=== PATIENT | male | born 1960 | race Caucasian/White ===

== ENCOUNTER → 2016-12-29 | Outpatient (CLI) | payer OTHER ==
[2016-12-29 12:25] LABS: CHLORIDE,CL 105 mmol/L (98-110); SODIUM,NA 136 mmol/L (136-146)
--- NOTE | 2016-12-29 12:56 | CR ---
EXAMINATION: Two-view chest (PA and Lateral views). HISTORY: Preprocedural examination. FINDINGS: The trachea is midline. The cardiomediastinal silhouette is within normal limits. No pulmonary infil trates, effusions or pneumothorax. Osseous structures appear unremarkable. IMPRESSION: No acute cardiopulmonary process.
== END ==
LOC: MW.CHFP 11:25
PROVIDERS: ATTEND Nurse Practitioner Family
DX: Z01.818 Encounter for other preprocedural examination (principal); R73.09 Other abnormal glucose
CPT/HCPCS: 36415; 71020; 71020-26; 80053; 85027; 93005

== ENCOUNTER → 2016-12-30 | Outpatient (CLI) | payer OTHER | LOC: MW.CHFP 07:35 | PROVIDERS: ATTEND Nurse Practitioner Family | DX: R73.09 Other abnormal glucose (principal) | CPT/HCPCS: 36415; 83036 ==

== ENCOUNTER 2019-08-05 11:11 | Day surgery (SDC) | payer OTHER ==
[~2019-08-05 11:11] MED LIST: Ropivacaine 0.5% 5 MG/ML 30 ML SDV ONE
[2019-08-05] MEDS ORDERED: Lactated Ringers 1,000 ML IV SCH (11:45)
[2019-08-05] MEDS ORDERED: Sugammadex Sodium 200 MG/2 ML VIAL ONE (11:56)
[2019-08-05] MEDS ORDERED: ceFAZolin 1 GM Vial ONE (12:13)
[2019-08-05] MEDS ORDERED: Glycopyrrolate 0.2 MG/ML SDV ONE (12:15)
[2019-08-05] MEDS ORDERED: Rocuronium 100 MG/10 ML Syringe ONE (12:15)
[2019-08-05] MEDS ORDERED: Ketorolac 30 MG/ML SDV ONE (12:15)
[2019-08-05] MEDS ORDERED: Ondansetron 4 MG/2 ML SDV ONE (12:15)
[2019-08-05] MEDS ORDERED: Midazolam 1 MG/ML 2 ML SDV ONE ×2 (12:16)
[2019-08-05] MEDS ORDERED: fentaNYL 100 MCG/2 ML SDV ONE (12:16)
[2019-08-05] MEDS ORDERED: Propofol 200 MG/20 ML SDV ONE (12:18)
[2019-08-05] MEDS ORDERED: Dexamethasone 4 MG/ML 5 ML MDV ONE ×2 (12:24→12:28)
--- NOTE | 2019-08-05 13:15 | PCM.PREANE ---
Preanesthetic Assessment - Anesthesia/Transfusion/Family Hx Anesthesia History: Prior Anesthesia Without Reaction Other Type of Anesthesia Reaction Comment: pt adopted unsure of family history Family History of Anesthesia Reaction: No Transfusion History: No Prior Transfusion(s) Intubation History: Unknown - Review of Systems General: No Symptoms Pulmonary: No Symptoms Cardiovascular: No Symptoms Gastrointestinal: No Symptoms Neurological: No Symptoms Other: Reports: None - Physical Assessment NPO Status Date: 08/04/19 NPO Status Time: 20:00 Vital Signs: Last Vital Signs Temp 36.4 C 08/05/19 11:25 Pulse 99 08/05/19 11:25 Resp 16 08/05/19 11:25 BP 145/89 H 08/05/19 11:25 Pulse Ox 98 08/05/19 11:25 Height: 6 ft Weight: 112.945 kg ASA Class: 3 Mental Status: Alert & Oriented x3 Airway Class: Mallampati = 2 Dentition: Reports: Normal Dentition ROM/Head Extension: Full Lungs: Clear to Auscultation, Normal Respiratory Effort Cardiovascular: Regular Rate, Regular Rhythm - Allergies Allergies/Adverse Reactions: Allergies Allergy/AdvReac Type Severity Reaction Status Date / Time diclofenac [Diclofenac] Allergy Swelling Verified 08/02/19 12:56 - Blood Blood Available: No - Anesthesia Plan Pre-Op Medication Ordered: None - Acknowledgements Anesthesia Type Planned: General Anesthesia (interscalene brachial plexus block for postoperative pain control) Pt an Appropriate Candidate for the Planned Anesthesia: Yes Alternatives and Risks of Anesthesia Discussed w Pt/Guardian: Yes Pt/Guardian Understands and Agrees with Anesthesia Plan: Yes PreAnesthesia Questionnaire - Past Health History Medical/Surgical History: Denies Medical/Surgical History HEENT History: Reports: Other (See Below) Other HEENT History: wears glasses Cardiovascular History: Reports: High Cholesterol, Hypertension Respiratory History: Reports: None Gastrointestinal History: Reports: Hepatitis Other Gastrointestinal History: hx hepatitis B with treatment Genitourinary History: Reports: None Musculoskeletal History: Reports: Osteoarthritis Neurological History: Reports: None Psychiatric History: Reports: None Endocrine/Metabolic History: Reports: Diabetes, Type II, Obesity/BMI 30+ Other Endocrine/Metabolic History: type II diabetes-diet controlled Hematologic History: Reports: None Immunologic History: Reports: None Oncologic (Cancer) History: Reports: None Dermatologic History: Reports: None - Infectious Disease History Infectious Disease History: Reports: Hepatitis B - Past Surgical History Head Surgeries/Procedures: Reports: None HEENT Surgical History: Reports: None Cardiovascular Surgical History: Reports: None Respiratory Surgical History: Reports: None GI Surgical History: Reports: Hernia, Inguinal Male Surgical History: Reports: None Endocrine Surgical History: Reports: None Neurological Surgical History: Reports: None Musculoskeletal Surgical History: Reports: Shoulder Surgery Other Musculoskeletal Surgeries/Procedures:: right RTCR, right shoulder revision and replacement Oncologic Surgical History: Reports: None - SUBSTANCE USE Smoking Status *Q: Current Some Day Smoker Tobacco Use Within Last Twelve Months: Cigarettes Recreational Drug Use History: No - HOME MEDS Home Medications: Home Meds Lisinopril [Zestril] 5 mg PO BEDTIME 08/02/19 [History] atorvaSTATin Calcium [Atorvastatin Calcium] 40 mg PO BEDTIME 08/02/19 [History] - CURRENT (IN HOUSE) MEDS Current Meds: Current Medications Lactated Ringer's (Ringers, Lactated) 1,000 mls @ 125 mls/hr IV ASDIRECTED FABIOLA Discontinued Medications Cefazolin Sodium (Ancef) Confirm Administered Dose 2 gm .ROUTE .STK-MED ONE Stop: 08/05/19 12:14 Dexamethasone (Dexamethasone) Confirm Administered Dose 20 mg .ROUTE .STK-MED ONE Stop: 08/05/19 12:25 Dexamethasone (Dexamethasone) Confirm Administered Dose 20 mg .ROUTE .STK-MED ONE Stop: 08/05/19 12:29 Fentanyl (Sublimaze) Confirm Administered Dose 100 mcg .ROUTE .STK-MED ONE Stop: 08/05/19 12:17 Glycopyrrolate (Robinul) Confirm Administered Dose 0.2 mg .ROUTE .STK-MED ONE Stop: 08/05/19 12:16 Ketorolac Tromethamine (Toradol) Confirm Administered Dose 30 mg .ROUTE .STK- MED ONE Stop: 08/05/19 12:16 Midazolam HCl (Versed 1 Mg/Ml) Confirm Administered Dose 2 mg .ROUTE .STK-MED ONE Stop: 08/05/19 12:17 Midazolam HCl (Versed 1 Mg/Ml) Confirm Administered Dose 2 mg .ROUTE .STK-MED ONE Stop: 08/05/19 12:17 Ondansetron HCl (Zofran) Confirm Administered Dose 4 mg .ROUTE .STK-MED ONE Stop: 12/20/19 12:16 Propofol (Diprivan 20 Ml) Confirm Administered Dose 200 mg .ROUTE .STK-MED ONE Stop: 08/05/19 12:19 Rocuronium [place]o (Zemuron) Confirm Administered Dose 100 mg .ROUTE .STK-MED ONE Stop: 08/05/19 12:16 Ropivacaine (Naropin 0.5%) Confirm Administered Dose 30 ml .ROUTE .STK-MED ONE Stop: 08/05/19 07:37 Sugammadex Sodium (Bridion) Confirm Administered Dose 200 mg .ROUTE .STK-MED ONE Stop: 08/05/19 11:57
--- NOTE | 2019-08-05 15:46 | PCM.OPNOTE ---
- General Post-Op/Procedure Note Date of Surgery/Procedure: 08/05/19 Operative Procedure(s): left shoulder arthroscopy, subacromial decompression and open rotator cuff repair Pre Op Diagnosis: left shoulder rotator cuff tear, shoulder impingement Post-Op Diagnosis: Same Anesthesia Technique: General ET Tube, Regional Block Primary Surgeon: Ronnie Loza Anesthesia Provider: Thomas Marie EBL in mLs: 50 Complications: None Condition: Good
[2019-08-05] MEDS ORDERED: Phenylephrine/Normal Saline 100 MCG/ML 10 ML Syringe ONE (15:53)
[2019-08-05] MEDS ORDERED: fentaNYL 100 MCG/2 ML SDV IVPUSH PRN (16:59)
--- NOTE | 2019-08-05 16:59 | PCM.PRNOTE ---
- Free Text/Narrative Note: Anes Note Left ISB for post op pain management as requeted by surgeon. The patient was brought tot he OR and sedated after monitors were applied. The anatomoy of the L IS groove was identified and prepped with chloraprep. A sterile fenestrated drape was applied. Using a 22 X 2 stimuplex A needle, the nerves of the IS were cautiously approached. An excellent biceps twitch was noted at 1 mA. With additional positioning, an excellent twitch was noted at 0.6 mA. At this time, 30 cc ).55 ropivicaine with 6 mg decadron was cautiously injected in 2-3 cc amounts with frequent aspiration to rule out intravascular injection. Procedure tolerated well. Prompt analgesia of the left shoulder was noted. Thomas Marie CRNA
[2019-08-05] MEDS ORDERED: Acetaminophen/oxyCODONE 325-10 MG Tab PO ONE (18:15)
--- NOTE | 2019-08-05 18:24 | PCM.POSTAN ---
POST ANESTHESIA ASSESSMENT - MENTAL STATUS Mental Status: Alert, Oriented - VITAL SIGNS Vital Signs: Last Vital Signs Temp 36.7 C 08/05/19 17:55 Pulse 79 08/05/19 18:17 Resp 15 08/05/19 18:17 BP 120/68 08/05/19 18:17 Pulse Ox 93 L 08/05/19 18:17 - RESPIRATORY Respiratory Status: Respiratory Rate WNL, Airway Patent, O2 Saturation Stable - CARDIOVASCULAR CV Status: Pulse Rate WNL, Blood Pressure Stable - GASTROINTESTINAL GI Status: No Symptoms - PAIN Pain Score: 5 - POST OP HYDRATION Hydration Status: Adequate & Stable - OBSERVATIONS Free Text/Narrative:: no anesthesia problems
[2019-08-05 20:06] VITALS: BP 118/72; PULSE 78
--- NOTE | 2019-08-05 20:14 | PCM48HPAN ---
Post Anesthesia Note - EVALUATION WITHIN 48HRS OF ANESTHETIC Vital Signs in Normal Range: Yes Patient Participated in Evaluation: Yes Respiratory Function Stable: Yes Airway Patent: Yes Cardiovascular Function Stable: Yes Hydration Status Stable: Yes Pain Control Satisfactory: Yes Nausea and Vomiting Control Satisfactory: Yes Mental Status Recovered: Yes Vital Signs: Last Vital Signs Temp 36.6 C 08/05/19 20:00 Pulse 78 08/05/19 20:00 Resp 17 08/05/19 20:00 BP 118/72 08/05/19 20:00 Pulse Ox 94 L 08/05/19 20:00
--- NOTE | 2019-08-05 22:12 | OR ---
SURGEON: Ronnie Loza DATE OF PROCEDURE: 08/05/2019 PREOPERATIVE DIAGNOSES: 1. Left shoulder rotator cuff tear. 2. Left shoulder impingement. POSTOPERATIVE DIAGNOSES: 1. Left shoulder rotator cuff tear. 2. Left shoulder impingement. PROCEDURE: 1. Left shoulder arthroscopy with partial synovectomy and subacromial decompression and labral debridement. 2. Left open rotator cuff repair. PRIMARY SURGEON: Ronnie Loza DO [employer] ATTENDANT: Darlene Hoover, outpatient physical therapist assistant student. ANESTHESIA: Thomas Espana CRNA FLUID: Lactated Ringer solution. ESTIMATED BLOOD LOSS: 50 mL. COMPLICATION: None. SPECIMEN: None. DISCHARGE DISPOSITION: Stable to PACU. HISTORY AND INDICATIONS FOR THE PROCEDURE: The patient was seen preoperatively in the clinic. He injured his left shoulder. Preoperative imaging confirmed the above-mentioned diagnosis. Risks and goals of the procedure were explained to the patient. Informed consent was obtained. DETAILS OF PROCEDURE: The patient was seen preoperatively by me and the anesthesia staff in the preoperative holding area where the operative site was marked. He was brought to the operative suite by the anesthesia staff where a left interscalene block was performed. General endotracheal intubation was performed. He was placed into a beach chair position. All extremities were found to be well padded. His neck was slightly flexed. The left upper extremity was then prepped and draped in a sterile manner. Time-out was called identifying the correct patient, correct procedure, the correct site, and that antibiotics had been given within appropriate period of time. Posterior portal was then made, and then the joint was entered. He had significant labral fraying. There was minimal glenohumeral arthritis present. I localized the anterior portal with a spinal needle and then with a trocar, and then entered with a shaver and debrided the labrum and performed a partial synovectomy with the shaver and ablation unit. I then redirected my trocar to the subacromial space. There was significant bursitis present. I performed a partial bursectomy and then entered through a lateral portal and then was able to enter with a shaver and ablation unit, performed the partial bursectomy, and then cleared the acromion. There was a type 2 acromial hook present. I used the bur and then burred off the acromial hook. I then removed my instruments from the subacromial space. I then made a saber incision lateral to the acromion. I identified the raphe between the medial and anterior deltoid. I took this down to the bursa, and then spread using Gelpi. Bleeding was controlled with Bovie electrocautery. I then performed a partial bursectomy with pickups and a blade. The rotator cuff tear was felt anteriorly as described on the MRI. I then placed 2 Corkscrew anchors and then ran these through the cuff and then tied these, and then I applied a SwiveLock anchor distally, and then ran my sutures through that for extra strength to the repair. This provided a good strength and placed the rotator cuff back in an anatomic position. I then irrigated with Betadine infused irrigation. I closed the deltoid with 0 Stratafix. I then closed the subcutaneous tissues with 0 Stratafix, followed by chu, followed by Betadine-soaked Adaptic, fluffs, and Medipore tape, and then placed the patient in a sling, and he was then allowed to awaken from general anesthesia and taken to the PACU in stable condition. [id number] / MODL /[id number]
== END 2019-08-05 20:00 | disposition home or self-care (01) ==
LOC: MW.SDS 11:11 → MW.MS 18:20 → MW.SDS 20:00
PROVIDERS: ATTEND Orthopaedic Surgery
DX: M75.102 Unspecified rotator cuff tear or rupture of left shoulder, not specified as traumatic (principal); M75.42 Impingement syndrome of left shoulder; M75.52 Bursitis of left shoulder; E11.9 Type 2 diabetes mellitus without complications; E78.00 Pure hypercholesterolemia, unspecified; F40.240 Claustrophobia; G89.18 Other acute postprocedural pain; Z88.8 Allergy status to other drugs, medicaments and biological substances; Z87.891 Personal history of nicotine dependence
CPT/HCPCS: 23412; 64415; A9270; J0690; J1100; J1885; J2250; J2370; J2405; J2704; J2795; J3010; J3490; J7120